=== PATIENT | male | born 1945 | race African-American/Black ===

== ENCOUNTER → 2016-12-27 | Outpatient (CLI) | payer OTHER ==
[2014-05-27 09:40] VITALS: BP 144/74
[~2016-12-27] MED LIST: ASPI-482 PO; LISI-334 PO; [UNRECOGNIZED DRUG - OTHER]
--- NOTE | 2016-12-27 08:47 | RAD ---
Testicular ultrasound 12/27/2016 at 0822 hours Indication: Bilateral testicle pain Comparison: None available Technique: Multiple sonographic images of the testicles were obtained utilizing grayscale, color Doppler spectral waveform analysis. Findings: The right testicle measures 4.2 x 3.8 x 2.2 cm. The left testicle measures 3.9 x 2.4 x 1.8 cm. The testicles are homogenous in echotexture. Perfusion is noted to the testicles bilaterally time of imaging utilizing color Doppler and spectral waveform analysis. Physiologic amount of fluid adjacent to the left testicle. No hydrocele is identified. Minimal prominence of the vascular plexus along the superior margin the right testicle without definite evidence for a varicocele. Epididymides appear normal. Impression: Normal sonographic appearance of the testicles. Perfusion is noted the testicles at the time of imaging.
== END | disposition home or self-care (01) ==
LOC: US 08:20
PROVIDERS: ATTEND Nurse Practitioner Occupational Health
DX: N50.811 Right testicular pain (principal); N50.812 Left testicular pain
CPT/HCPCS: 76870